=== PATIENT | female | born 1990 | race African-American/Black ===

== ENCOUNTER 2017-05-29 11:12 | Emergency (ER) | payer SELFPAY ==
[~2017-05-29] VITALS: Ht 152.4 cm; Wt 48.0 kg
[2017-05-29 11:21] VITALS: BP 114/71
== END 2017-05-29 18:27 | disposition left against medical advice (07) ==
LOC: ER 11:12
DX: N64.4 Mastodynia (principal); Z53.21 Procedure and treatment not carried out due to patient leaving prior to being seen by health care provider

== ENCOUNTER 2017-05-30 07:26 | Emergency (ER) | payer OTHER ==
[~2017-05-30] VITALS: Ht 152.4 cm; Wt 48.0 kg
[2017-05-30 07:32] VITALS: BP 101/66
== END 2017-05-30 09:39 | disposition left against medical advice (07) ==
LOC: ER 08:23
DX: N63 Unspecified lump in breast (principal); Z98.890 Other specified postprocedural states; Z80.3 Family history of malignant neoplasm of breast
CPT/HCPCS: 99281